=== PATIENT | male | born 1945 | race Caucasian/White ===

== ENCOUNTER 2025-06-19 18:50 | Inpatient (IN) | payer OTHER, SELFPAY ==
[2025-06-19 12:08] VITALS: BP 155/79
[2025-06-19 15:25] VITALS: BMI 30.6
--- NOTE | 2025-06-19 15:33 | ED.GENMED ---
History of Present Illness
<Porfirio Segura PA-C - Last Filed: 06/19/25 16:57>
General
Chief Complaint: Swelling
Source: patient
Exam Limitations: none
Time Seen by Provider: 06/19/25 15:13
History of Present Illness
History of Present Illness:
79-year-old male presents in referral from his family doctor's office for increased swelling to the legs. He notes fatigue denies any significant shortness of breath. He does not note any symptoms of orthopnea. No prior diagnosis of CHF. He
states the swelling is spreading into his pelvic area and surrounding his penis as well. No chest pain. He is on aspirin and Plavix but no other blood thinners. He states he is quite active he lifts weights and rides a bike daily.
Phy Exam
<Porfirio Segura PA-C - Last Filed: 06/19/25 16:57>
Physical Exam
Physical Exam:
General: Well-appearing male no acute respiratory distress
HEENT: Normal cephalic atraumatic
Heart: Regular rate and rhythm
Lungs: Clear no wheeze
Abdomen is soft nontender
Extremities: Pitting edema bilateral lower extremities into the bilateral thighs and pelvic area.
Vascular: 2+ DP pulse bilateral feet
Scores
<Porfirio Segura PA-C - Last Filed: 06/19/25 16:57>
Heart Failure Risk
Heart Failure Risk Score: Not Applicable
Course
<GARRY Schultz Last Filed: 06/19/25 16:57>
Orders/Labs/Results
Orders:
Orders
06/19/25 12:13
Electrocardiogram (*1) Urgent
Reason for Study: Other
Other Reason for Exam: b/l leg swelling
EKG- Treatment ONCE
06/19/25 15:30
CR Chest - 2 Views Urgent
Comment:
Reason For Exam: fatigue
06/19/25 16:04
Complete Blood Count/With Diff Urgent
Comprehensive Metabolic Panel Urgent
NT-proBNP Urgent
06/19/25 16:51
Furosemide [Lasix] 40 mg IV NOW STA
Abnormal Lab Results
06/19/25
16:04
RBC 4.00 L 10^6/uL
(4.70-6.10)
Hgb 12.3 L g/dL
(13.0-18.0)
Hct 38.1 L %
(39.0-52.0)
MCV 95.3 H fL
(80.0-94.0)
MCHC 32.3 L g/dL
(33.0-37.0)
RDW 14.7 H %
(11.5-14.5)
MPV 10.6 H fL
(7.4-10.4)
Absolute Lymphs (auto) 0.9 L 10^3/uL
(1.2-3.4)
Absolute Monos (auto) 0.7 H 10^3/uL
(0.1-0.6)
Lymphocytes % 17.6 L %
(20.5-51.1)
Monocytes % 12.8 H %
(1.7-9.3)
Chloride 111 H mmol/L
(98-107)
BUN 34 H mg/dl
(9-20)
Glucose 118 H mg/dl
(70-99)
Total Bilirubin 1.4 H mg/dl
(0.2-1.3)
06/19/25 16:04
06/19/25 16:04
Vital Signs
Initial and Last Documented VS:
Initial Vital Signs
Temp Pulse Resp BP Pulse Ox
97.5 F 78 16 155/79 98
06/19/25 12:08 06/19/25 12:08 06/19/25 12:08 06/19/25 12:08 06/19/25 12:08
Last Documented Vital Signs
Temp Pulse Resp BP Pulse Ox
97.5 F 81 18 156/77 100
06/19/25 12:08 06/19/25 16:25 06/19/25 16:25 06/19/25 16:25 06/19/25 16:25
<Cr Mathias, - Last Filed: 06/19/25 17:00>
Orders/Labs/Results
Orders:
Orders
06/19/25 12:13
Electrocardiogram (*1) Urgent
Reason for Study: Other
Other Reason for Exam: b/l leg swelling
EKG- Treatment ONCE
06/19/25 15:30
CR Chest - 2 Views Urgent
Comment:
Reason For Exam: fatigue
06/19/25 16:04
Complete Blood Count/With Diff Urgent
Comprehensive Metabolic Panel Urgent
NT-proBNP Urgent
06/19/25 16:51
Furosemide [Lasix] 40 mg IV NOW STA
Abnormal Lab Results
06/19/25
16:04
RBC 4.00 L 10^6/uL
(4.70-6.10)
Hgb 12.3 L g/dL
(13.0-18.0)
Hct 38.1 L %
(39.0-52.0)
MCV 95.3 H fL
(80.0-94.0)
MCHC 32.3 L g/dL
(33.0-37.0)
RDW 14.7 H %
(11.5-14.5)
MPV 10.6 H fL
(7.4-10.4)
Absolute Lymphs (auto) 0.9 L 10^3/uL
(1.2-3.4)
Absolute Monos (auto) 0.7 H 10^3/uL
(0.1-0.6)
Lymphocytes % 17.6 L %
(20.5-51.1)
Monocytes % 12.8 H %
(1.7-9.3)
Chloride 111 H mmol/L
(98-107)
BUN 34 H mg/dl
(9-20)
Glucose 118 H mg/dl
(70-99)
Total Bilirubin 1.4 H mg/dl
(0.2-1.3)
06/19/25 16:04
06/19/25 16:04
Vital Signs
Initial and Last Documented VS:
Initial Vital Signs
Temp Pulse Resp BP Pulse Ox
97.5 F 78 16 155/79 98
06/19/25 12:08 06/19/25 12:08 06/19/25 12:08 06/19/25 12:08 06/19/25 12:08
Last Documented Vital Signs
Temp Pulse Resp BP Pulse Ox
97.5 F 81 18 156/77 100
06/19/25 12:08 06/19/25 16:25 06/19/25 16:25 06/19/25 16:25 06/19/25 16:25
<Porfirio Segura PA-C - Last Filed: 06/19/25 16:57>
MDM/Problems Addressed
Differential Diagnosis Includes:
1 patient presents with leg swelling. Consider CHF versus dependent edema versus liver dysfunction
Check labs including BNP. EKG pending. Chest x-ray ordered
<Porfirio Segura PA-C - Last Filed: 06/19/25 16:57>
*Pulse Oximetry
SaO2: 98
Oxygen Mode of Delivery: Room air
Patient hypoxic: no
*Critical Care Note
Total Time (30-74mins, 75-104mins- exclusive of procedures): Not Applicable
<Porfirio Segura PA-C - Last Filed: 06/19/25 16:57>
Update Note
Update Note:
Workup here consistent with CHF with pulmonary edema cardiomegaly and pleural effusion on the x-ray with BNP greater than 27,000. Lasix IV ordered. Will admit to hospital
ED Attending Note
<Porfirio Segura PA-C - Last Filed: 06/19/25 16:57>
-
Portions of this chart may have been created with voice recognition software.� Occasional wrong word or��sound alike� substitutions may have occurred due to the inherent limitations of voice recognition software.
<Cr Mathias DO - Last Filed: 06/19/25 17:00>
ED Attending Note
Patient seen and examined by attending physician: Yes
I performed the substantive portion of visit, reviewed & personally made and approve the management plan that is documented in note by myself or PRICILLA.: Yes
Discharge Plan
Departure
Patient Disposition: Admit
Date of Disposition: 06/19/25
Time of Disposition: 16:57
Presentation/result/management discussed w/ accepting MD/DO: Hospitalist
Discharge Problem:
Acute CHF
Prescriptions:
No Action
atorvastatin 80 mg tablet
80 mg PO HS
lisinopril 20 mg tablet
20 mg PO BID
clopidogrel 75 mg tablet
75 mg PO DAILY
nitroglycerin 0.4 mg tablet, sublingual
0.4 mg sublingual [id number] PRN (Reason: chest pain)
lorazepam 1 mg tablet
1 mg PO HS
carvedilol phosphate 20 mg capsule, ER multiphase 24 hr
20 mg PO DAILY
Theragen Tablet
1 tab PO DAILY
aspirin 81 mg Tablet,Delayed Release (Dr/Ec)
81 mg PO DAILY
ascorbic acid (vitamin C) [Vitamin C] 500 mg Tablet
500 mg PO DAILY
coenzyme Q10 [Co Q-10] 100 mg Capsule
100 mg PO DAILY
cholecalciferol (vitamin D3) 25 mcg (1,000 unit) Tablet
25 mcg PO DAILY
Visbiome 112.5 billion cell Capsule
1 cap PO DAILY
omeprazole 20 mg Tablet,Delayed Release (Dr/Ec)
20 mg PO DAILY
garlic 200 mg Tablet
200 mg PO DAILY
Glucosamine Chondroitin 550-30-1 mg Capsule
1 cap PO DAILY
Referrals:
Bertrand Mathews CRNP [Family Provider, General]
Interventions
Interventions:
*Risk Screen - Suicide Last Done: 06/19/25 12:08
*Neglect/Abuse Screening Last Done: 06/19/25 12:08
ED- Cardiac Assessment Last Done: 06/19/25 15:25
ED- Pulmonary Assessment Last Done: 06/19/25 15:25
ED-Skin Assessment Last Done: 06/19/25 16:24
Discharge Date and Time
Print Language: KISWAHILI
[2025-06-19 16:17] LABS: Hematocrit 38.1 % (39.0-52.0); Hemoglobin 12.3 g/dL (13.0-18.0); Mean Corp Hgb Conc. 32.3 g/dL (33.0-37.0); Mean Corpuscular Volume 95.3 fL (80.0-94.0); Nucleated Red Blood Cells % 0 % (-); Platelet Count 177 10^3/uL (130-400); Red Cell Dist. Width 14.7 % (11.5-14.5)
[2025-06-19 16:25] VITALS: BP 156/77
[2025-06-19 16:37] LABS: ALT (SGPT) 25 U/L (0-50); AST (SGOT) 28 U/L (17-59); Albumin 3.9 g/dl (3.5-5.0); Alkaline Phosphatase 82 U/L (38-126); Blood Urea Nitrogen 34 mg/dl (9-20); Calcium 9.0 mg/dl (8.4-10.2); Carbon Dioxide 22 mmol/L (22-30); Chloride 111 mmol/L (98-107); Estimated Creatinine Clearance 45 ml/min; Glucose 118 mg/dl (70-99); Potassium 4.9 mmol/L (3.5-5.1); Sodium 139 mmol/L (135-145); Total Protein 7.2 g/dl (6.3-8.2); eGFR > 60.00
--- NOTE | 2025-06-19 17:07 | HPS.HSE ---
Addendum entered and electronically signed by Zaira Duke MD 06/19/25 18:57:
Attending addendum:
I saw and evaluated the patient. I reviewed the [employer]�s note and agree with findings and plan as documented in the [employer]�s note. Came to the ER with progressive lower extremity edema for last 2 months, was seen by his family doctor today advised to come
to the ER.
Patient denies any shortness of breath, no orthopnea, normally active at home, riding his bike and weightlifting, no paroxysmal nocturnal dyspnea.
Patient seen and examined at bedside, denies any chest pain or shortness of breath, no abdominal pain, no nausea, no vomiting, no diarrhea or constipation.
Physical exam:
GENERAL : Patient is awake, alert, oriented x3
HEENT: Nonicteric sclerae, PERRLA, EOMI. Oropharynx clear. Moist mucous membranes. Conjunctivae appear well perfused.
CHEST: Chest wall is nontender.
HEART: Regular rate and rhythm without murmurs.
LUNGS: Clear to auscultation bilaterally.
ABDOMEN: Soft, positive bowel sounds, nontender, no organomegaly.
RECTAL: Deferred.
MUSCLES/EXTREMITIES: Bilateral +2 edema
NEUROLOGIC: Cranial nerves II-XII intact without motor/sensory deficit.
Assessment/plan:
Bilateral lower extremity edema.
Clear lung on physical exam.
but chest x ray shows:
1. SMALL BILATERAL PLEURAL EFFUSIONS (right larger than left).
2. Moderate to severe right lower lobe and mild to moderate left lower lobe subpleural airspace consolidation (probably compressive atelectasis).
3. ELEVATED PULMONARY VENOUS PRESSURES and mild interstitial cardiogenic pulmonary edema.
4. Mild to moderate cardiomegaly.
5. 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
Echocardiogram from 2020 shows EF of 55%.
Elevated BNP 35935
Lasix started in the ER, will continue.
Cardiology consult.
Repeat echocardiogram
Coronary artery disease status post stent in 2017.
No chest pain currently.
Continue home Plavix/aspirin/atorvastatin/carvedilol
History of hypertension.
Continue lisinopril/carvedilol
GERD.
Continue with omeprazole
Anxiety.
Continue lorazepam
CODE STATUS: Full code
DVT prophylaxis: Heparin
Diet: Regular diet
Disposition: Lasix/echo/cardiology consult
Total time spent on today�s encounter was 75 minutes which included time spent in counseling the patient/family regarding diagnosis and treatment plan as listed above, goals of care, and symptom management. Case was discussed with nursing staff,
specialists, and care coordinators/case management. All labs and imaging personally reviewed by me. Remainder the time spent in detailed review of previous records, lab data, imaging, and other medical provider documentation.
Original Note:
Family Physician
-
Family Physician: ROSA Cardoza
Chief Complaint
-
increased bilateral lower extremity edema
History of Present Illness
Patient is a 79-year-old male with past medical history significant for hypertension, hyperlipidemia, paroxysmal atrial fibrillation, congestive heart failure, GERD and CAD who presented to [facility] ED for evaluation of increased swelling in bilateral
lower extremities. Patient reports it has been present for the last several months and he has been seen by [facility] in [place] (Bertrand LEE), earlier this month and again today. Cardiology today requested he go to ED for
evaluation. Patient does admit to some exertional dyspnea. Denies fever, chills, cough, chest pain or palpitations.
Medical History
Past Medical History
Past Medical History: Reports Other
Additional Past Medical History:
hypertension
hyperlipidemia
paroxysmal atrial fibrillation
congestive heart failure
GERD
CAD
abdominal aortic aneurysm
right bundle branch block
Past Surgical History: Reports Other
Additional Past Surgical History:
cardiac cath with stent
Social History
Tobacco: Non-smoker
Alcohol: Occasional
Drug: None
Personal:
Living: With Family
Employment: Retired
Family History
Family History: Not pertinent
Allergies / Home Medications
Allergies reflects when Allergies were last updated in [facility].
Home Medications with original date entered in [facility]
Allergy/Medication List:
Allergies
Allergy/AdvReac Type Severity Reaction Status Date / Time
Penicillins Allergy Rash Verified 06/19/25 12:12
Home Medications
Lactobac no.2-Bifidobac no.1-S. thermo 112.5 billion cell capsule (Visbiome) 1 cap PO DAILY 06/19/25
ascorbic acid (vitamin C) 500 mg tablet (Vitamin C) 500 mg PO DAILY 06/19/25
aspirin 81 mg tablet,delayed release 81 mg PO DAILY 06/19/25
atorvastatin 80 mg tablet 80 mg PO HS 06/19/25
carvedilol phosphate 20 mg capsule,[id number] multiphase 20 mg PO DAILY 06/19/25
cholecalciferol (vitamin D3) 25 mcg (1,000 unit) tablet 25 mcg PO DAILY 06/19/25
clopidogrel 75 mg tablet 75 mg PO DAILY 06/19/25
coenzyme Q10 100 mg capsule (Co Q-10) 100 mg PO DAILY 06/19/25
garlic 200 mg tablet 200 mg PO DAILY 06/19/25
glucosamine sulf dipot chlr,msm,chond 550 mg-C 30 mg-george 1 mg capsule (Glucosamine Chondroitin) 1 cap PO DAILY 06/19/25
lisinopril 20 mg tablet 20 mg PO BID 06/19/25
lorazepam 1 mg tablet 1 mg PO HS 06/19/25
nitroglycerin 0.4 mg sublingual tablet 0.4 mg sublingual [id number] PRN chest pain 06/19/25
omeprazole 20 mg tablet,delayed release 20 mg PO DAILY 06/19/25
therapeutic multivitamin 1 tab PO DAILY 06/19/25
Review of Systems
-
History Source: Patient
Constitutional: Reports Weight Gain; Denies Fever or Chills
EENT: Denies Sore Throat
Respiratory: Reports Trouble Breathing (exertional dyspnea ); Denies Cough
Cardiac: Reports Other (BLLE edema ); Denies Chest Pain, Diaphoresis, Palpitations or Syncope
Abdomen/GI: Denies Abdominal Pain, Nausea, Vomiting or Diarrhea
: Denies Dysuria, Frequency or Urgency
Skin: Denies Rash
Neurological: Denies Dizzy, Headache, Weakness or Numbness
Hematologic/Lymphatic: Denies Bleeding
Physical Exam
Vital Signs
Vital Signs
Temp Pulse Resp BP Pulse Ox
97.5 F 81 18 156/77 100
06/19/25 12:08 06/19/25 16:25 06/19/25 16:25 06/19/25 16:25 06/19/25 16:25
Physical Exam
General: Well Developed, Well Nourished, No Apparent Distress, Comfortable, Conversant and Obese
HEENT: NormoCephalic, Moist mucous membranes, PERRLA, Nose Appears Normal and Ears Appear Normal
Respiratory: Clear and Non Labored Respirations
Cardiac: S1/S2 and Regular Rhythm; No Murmur
GI: Soft, Non Tender, Non Distended and Normal Bowel Sounds
Musculoskeletal: No Clubbing, No Cyanosis and No Edema
Skin: Warm and IV/Catheter Site
Neuro: Awake and AO x 3
Psych: Calm and Intact Judgment/Insight
Laboratory Results
-
06/19/25 16:04
06/19/25 16:04
Laboratory Results
Total Bilirubin 1.4 mg/dl (0.2-1.3) H 06/19/25 16:04
AST 28 U/L (17-59) 06/19/25 16:04
ALT 25 U/L (0-50) 06/19/25 16:04
Alkaline Phosphatase 82 U/L (38-126) 06/19/25 16:04
Data Reviewed
-
Medical Tests (Nuc Med, Echo, EKG etc): Report Reviewed by me (EKG: NORMAL SINUS RHYTHM RIGHT BUNDLE BRANCH BLOCK INFERIOR INFARCT , AGE UNDETERMINED T WAVE ABNORMALITY, CONSIDER LATERAL ISCHEMIA)
Lab Data: Labs Reviewed by me (pBNP >[id number])
Impression/Plan
-
IMPRESSION/PLAN:
#bilateral lower extremity edema 2/2 CHF vs. dependent edema
#congestive heart failure
pBNP >78875
EKG: NORMAL SINUS RHYTHM
RIGHT BUNDLE BRANCH BLOCK
INFERIOR INFARCT , AGE UNDETERMINED
T WAVE ABNORMALITY, CONSIDER LATERAL ISCHEMIA
CXR:
- Admit to telemetry
- Consult Cardiology
- IV Lasix 40mg daily
- ECHO
- daily weights
- I & Os
#hypertension
- continue lisinopril
#hyperlipidemia
- continue atorvastatin
#paroxysmal atrial fibrillation
- continue carvedilol
#CAD
s/p stent
- continue aspirin and Plavix
- continue PRN nitro
Code status: full code
DVT Prophylaxis: heparin sq
[2025-06-19] MEDS: LASIX 40 MG IV (17:09)
[2025-06-19 19:30] VITALS: BP 112/74; BMI 29.6
--- NOTE | 2025-06-19 19:45 | PTCARENOTE ---
Patient received from ED via stretcher. Patient walked into room. No complaints of pain or SOB. Vitals stable, call stevenson within reach, and oriented to room.
[2025-06-19] MEDS: ZESTRIL 20 MG PO (20:40)
[2025-06-19] MEDS: ATIVAN 1 MG PO (21:36)
[2025-06-19] MEDS: LIPITOR 80 MG PO (21:36)
[2025-06-19 23:07] VITALS: BP 130/64
[2025-06-20] MEDS: HEPARIN 5000 UNITS SC ×4 (00:37→23:16)
[2025-06-20 04:10] VITALS: BP 116/55
[2025-06-20 05:56] VITALS: BMI 29.6
[2025-06-20 07:25] VITALS: BP 138/76
[2025-06-20] MEDS: COREG 6.25 MG PO ×2 (07:54→19:55)
[2025-06-20] MEDS: ZESTRIL 20 MG PO ×2 (07:56→19:55)
[2025-06-20] MEDS: PLAVIX 75 MG PO (07:56)
[2025-06-20] MEDS: ASPIR LOW (ENTERIC COATED) 81 MG PO (07:56)
[2025-06-20] MEDS: LASIX 40 MG IV (07:56)
[2025-06-20] MEDS: PROTONIX 40 MG PO (07:56)
[2025-06-20 08:33] LABS: Hematocrit 33.0 % (39.0-52.0); Hemoglobin 10.7 g/dL (13.0-18.0); Mean Corp Hgb Conc. 32.4 g/dL (33.0-37.0); Mean Corpuscular Volume 94.8 fL (80.0-94.0); Platelet Count 152 10^3/uL (130-400); Red Cell Dist. Width 14.8 % (11.5-14.5)
[2025-06-20 09:00] LABS: Blood Urea Nitrogen 35 mg/dl (9-20); Calcium 8.6 mg/dl (8.4-10.2); Carbon Dioxide 25 mmol/L (22-30); Chloride 112 mmol/L (98-107); Estimated Creatinine Clearance 38 ml/min; Glucose 83 mg/dl (70-99); HDL Cholesterol 34 mg/dl; LDL Cholesterol, Calculated 21 mg/dl; Potassium 4.3 mmol/L (3.5-5.1); Sodium 142 mmol/L (135-145); Very Low Density Lipoprotein 13 mg/dl (0-30); eGFR 50.81
[2025-06-20 09:27] LABS: Troponin I 0.153 ng/ml
--- NOTE | 2025-06-20 11:01 | CON.CAR ---
Addendum entered and electronically signed by Ryland Maya MD 06/20/25 15:08:
I saw and examined the patient.
The THEOLOGY PROFESSOR or PA's note was reviewed and I agree with the note.
Comment: General: Well developed, well nourished in NAD.
Neck: Supple, no JVD, HJR, carotids +2 B/L, no bruits bilaterally.
Heart: Non displaced PMI, RRR, no murmurs, No S3, S4, no rubs.
Lungs: Scattered rhonchi
Extremities: No clubbing, cyanosis or edema bilaterally.
Neuro: Grossly nonfocal, awake, alert and oriented x3.
Martell has history of hypertension, hyperlipidemia, A-fib, CHF, GERD, CAD, cardiomyopathy ejection fraction of 25 to 30% in May 2025. He presents with worsening shortness of breath and lower extremity edema and acute systolic CHF. He is seen by
cardiology pain at [place] and wanted to come to the [place] system. Will continue Coreg and lisinopril. Will consider adding Aldactone and/or Jardiance/Aldactone depending on course.
Original Note:
Consultation
Consultation Request
Date/Time Consultation Requested: 06/19/2025, 2004
Date/Time Consultation Performed: 06/20/2025, 1100
Requesting Provider: ROSA Corrales
Performing Provider: ROSA Zhao for Dr. Maya
Reason for Consultation: Increasing lower extremity edema
Medical History
-
Chief Complaint: Lower extremity edema
History of Present Illness:
79-year-old male with past medical history of hypertension, hyperlipidemia, paroxysmal A-fib, heart failure, GERD, CAD who presents to [facility] ED 06/19/2025 for increased lower extremity edema of several months duration. He was seen at [facility]
primary care in [place] on 06/19/2025 and advised to go to ED. He reports a history of stent [facility] at [facility] and has been on aspirin and Plavix since then. He has been told that he has heart failure in the past but he does not know
EF. He is followed by Dr. Raj Rodriguez at [facility], I have requested records. Reviewed patient's outpatient med list. From cardiovascular standpoint he is on Coreg CR 20 mg daily, lisinopril 20 mg twice daily, aspirin, Plavix. He is
not on a diuretic in the outpatient setting. Paroxysmal A-fib is listed as a diagnosis but he is not aware of an arrhythmia history and is not on oral anticoagulation.
He denies shortness of breath, chest pain, palpitations, lightheadedness, syncope, PND, orthopnea
ER evaluation: proBNP greater than 27,000
Troponin 0.153
BUN/creatinine 34/1.2, NA 139, K4.9
Chest x-ray: Small bilateral pleural effusions right greater than left elevated pulmonary venous pressures and mild interstitial cardio genic pulmonary edema
EKG: Normal sinus rhythm, first-degree AV block, right bundle branch block
Past medical history:
Hypertension
Hyperlipidemia
CAD status post stent x 2 in 2018 at [facility], on aspirin and Plavix
Paroxysmal A-fib
Heart failure
Right bundle branch block
Abdominal aortic aneurysm
GERD
Past Medical History
Past Medical History: Other (As above)
Past Surgical History: Other
Social History
Tobacco: Non-Smoker
Alcohol: Occasional
Family History
Family History: Reviewed & Not Pertinent
Allergies / Home Medications
Allergy/AdvReac Type Severity Reaction Status Date / Time
Penicillins Allergy Rash Verified 06/19/25 12:12
�Medication �Instructions �Recorded �Confirmed �Type
Lactobac no.2-Bifidobac no.1-S. 1 cap PO DAILY Supplement 06/19/25 06/19/25 History
thermo 112.5 billion cell capsule
(Visbiome)
ascorbic acid (vitamin C) 500 mg 500 mg PO DAILY Supplement 06/19/25 06/19/25 History
tablet (Vitamin C)
aspirin 81 mg tablet,delayed 81 mg PO DAILY Blood Clot 06/19/25 06/19/25 History
release Prevention/Tx
atorvastatin 80 mg tablet 80 mg PO HS High Cholesterol 06/19/25 06/19/25 History
carvedilol phosphate 20 mg 20 mg PO DAILY Blood Pressure 06/19/25 06/19/25 History
capsule,[id number] multiphase
cholecalciferol (vitamin D3) 25 25 mcg PO DAILY Supplement 06/19/25 06/19/25 History
mcg (1,000 unit) tablet
clopidogrel 75 mg tablet 75 mg PO DAILY Blood Clot 06/19/25 06/19/25 History
Prevention/Tx
coenzyme Q10 100 mg capsule (Co 100 mg PO DAILY Supplement 06/19/25 06/19/25 History
Q-10)
garlic 200 mg tablet 200 mg PO DAILY Supplement 06/19/25 06/19/25 History
glucosamine sulf dipot 1 cap PO DAILY Supplement 06/19/25 06/19/25 History
chlr,msm,chond 550 mg-C 30 mg-george
1 mg capsule (Glucosamine
Chondroitin)
lisinopril 20 mg tablet 20 mg PO BID Blood Pressure 06/19/25 06/19/25 History
lorazepam 1 mg tablet 1 mg PO HS Mental Health/Anxiety 06/19/25 06/19/25 History
nitroglycerin 0.4 mg sublingual 0.4 mg sublingual [id number] PRN 06/19/25 06/19/25 History
tablet chest pain
omeprazole 20 mg tablet,delayed 20 mg PO DAILY GERD 06/19/25 06/19/25 History
release
therapeutic multivitamin 1 tab PO DAILY Supplement 06/19/25 06/19/25 History
Review of Systems
-
History Source: Patient
All other systems: Negative unless noted
Physical Exam
Vital Signs
Temp Pulse Resp BP Pulse Ox
97.5 F 76 16 138/76 97
06/20/25 07:25 06/20/25 07:25 06/20/25 07:25 06/20/25 07:25 06/20/25 07:55
Lab Results
06/20/25 07:01
06/20/25 07:01
Troponin I 0.153 ng/ml H* 06/20/25 08:47
Bgu-I-Lqfcncaiyxl Pept > 77623 pg/ml 06/19/25 16:04
GEN: No distress, awake, Ox3
HEENT: supple, anicteric, mmm
LUNGS: CTA, no wheezes/rales
CV: Reg, S1/S2, no murmur
ABD: soft, BS+, NT/ND
EXT: 1+ pitting bilateral lower extremity edema to knees
NEURO: Gross non-focal
SKIN: No rash
Impression / Plan
-
PCP:ROSA Jiménez
Primary auto rebuilder:Raj Rodriguez
Impression:
Acute on chronic heart failure reduced EF
Lower extremity edema
CAD
Hypertension
Hyperlipidemia
Paroxysmal A-fib
right bundle branch block
Cardiovascular testing:
Echo 2020: EF 55%
Echo 06/16/2025: EF 25 to 30%, mildly dilated LV, mild cLVH, biatrial enlargement, moderate AI, mild to moderate MR, mild TR
Plan:
79-year-old male with h/o CAD s/p stent x 2 2017, HTN, hyperlipidemia, paroxysmal A-fib, heart failure, GERD, who presents to [facility] ED 06/19/2025 for increased lower extremity edema of several months duration. He was seen at [facility] primary
care in [place] on 06/19/2025 and advised to go to ED. proBNP greater than 27,000, chest x-ray with mild pulmonary edema and bilateral pleural effusions, echo today 05/2024: EF 25 to 30%. He is followed by Dr. Raj Rodriguez at [facility],
but has not been seen in about a year. I have requested records. on Coreg CR 20 mg daily, lisinopril 20 mg twice daily, aspirin, Plavix. He is not on a diuretic in the outpatient setting. Paroxysmal A-fib is listed as a diagnosis but he is not
aware of an arrhythmia history and is not on oral anticoagulation.
acute Heart failure reduced EF
-IV Lasix
-cont outpt coreg, lisinopril
-consider adding MRA and SGLT2-I
-awaiting records from outpt cardiogist
-I/O, daily wt
-monitor renal fxn
h/o CAD
-on DAPT since stenting in 2018
-denies CP/anginal symptoms
-cont atorvastatin, goal LDL <55
-cont Coreg, HTN control
HTN
-cont Lisinopril and Coreg
h/o pafib
-not on OAC
-pt denies h/o arrhythmia
-monitor on telem
-await records from primary cards�I called and requested
-Telemetry personally reviewed: Normal sinus rhythm 62 to 78 bpm
Data Reviewed
-
EKG: Tracing Personally Visualized and interpreted
Medical Tests (Nuc Med, Echo etc): Image Personally Visualized and interpreted
Labs: Labs Reviewed by me
Old Records: Requested
[2025-06-20 11:10] VITALS: BP 136/63
--- NOTE | 2025-06-20 13:07 | W.PN.HOSP.TC ---
Today's Communication/Plan
-
Monitor vital signs see plan
Continue IV diuresis
Echo
Cardiology to see
Check venous ultrasound
Trend Trop
Assessment / Plan
Assessment / Plan
General: Well Developed, Well Nourished, No Apparent Distress, Comfortable, Conversant and Obese
HEENT: NormoCephalic, Moist mucous membranes, PERRLA, Nose Appears Normal and Ears Appear Normal
Respiratory: Clear and Non Labored Respirations
Cardiac: S1/S2 and Regular Rhythm; No Murmur
GI: Soft, Non Tender, Non Distended and Normal Bowel Sounds
Musculoskeletal: 2+ pitting edema
Neuro: Awake and AO x 3
Psych: Calm and Intact Judgment/Insight
bilateral lower extremity edema likely 2/2 acute CHF
pBNP >14880
Chest x-ray with small bilateral pleural effusion, possible atelectasis. Interstitial cardiogenic pulmonary edema.
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
Echo 06/20 with EF 25 to 30%, global hypokinesis. Grade 2 diastolic dysfunction. Will likely need to see his previous echocardiogram
Cardiology consulted
Continue with IV diuresis
- daily weights
- I & Os
Check lower extremity Doppler
Elevated troponin, likely nonischemic myocardial injury
Denies chest pain
hx of CAD
s/p stent
- continue aspirin and Plavix
- continue PRN nitro
hypertension
- continue lisinopril
hyperlipidemia
- continue atorvastatin
paroxysmal atrial fibrillation
- continue carvedilol
not sure why not on AC
Code status: full code
DVT Prophylaxis: heparin sq
I spent a total of 52 minutes with the patient or on the floor. More than 50% of this time involved counseling and coordination of care.
Anticipated Discharge: > 48 hours
Subjective/Interval History
-
Date of Service: June 20, 2025
Feels swelling is better
Objective Data
-
Labs:
Laboratory Results
06/20/25
07:01
WBC 4.2 L
Hgb 10.7 L
Hct 33.0 L
Plt Count 152
Sodium 142
Potassium 4.3
Chloride 112 H
Carbon Dioxide 25
BUN 35 H
Creatinine 1.4 H
Glucose 83
Calcium 8.6
Vital Signs:
Vital Signs
Temp Pulse Resp BP Pulse Ox
97.7 F 79 18 136/63 96
06/20/25 11:10 06/20/25 11:10 06/20/25 11:10 06/20/25 11:10 06/20/25 11:10
I&O
06/19/25 06/20/25 06/21/25
06:59 06:59 06:59
Intake Total 120 / 120
Output Total 1275 / 1275
Balance -1155 / -1155
[2025-06-20 15:12] VITALS: BP 140/68
--- NOTE | 2025-06-20 16:22 | CM ---
Patient lives with his spouse in a two story home, 2 steps to enter, patient is independent with adl's and ambulation, no dme, plan is to home with spouse when stable.
PCP: Bertrand Mathews
Pharmacy: [facility]
[2025-06-20 19:10] VITALS: BP 137/76
[2025-06-20] MEDS: ATIVAN 1 MG PO (21:06)
[2025-06-20] MEDS: LIPITOR 80 MG PO (21:06)
[2025-06-20 23:04] LABS: Troponin I 0.122 ng/ml
[2025-06-20 23:10] VITALS: BP 108/46
[2025-06-21 03:00] VITALS: BP 144/76
[2025-06-21 03:02] LABS: Hematocrit 35.0 % (39.0-52.0); Hemoglobin 11.5 g/dL (13.0-18.0); Mean Corp Hgb Conc. 32.9 g/dL (33.0-37.0); Mean Corpuscular Volume 93.3 fL (80.0-94.0); Platelet Count 166 10^3/uL (130-400); Red Cell Dist. Width 15.0 % (11.5-14.5)
[2025-06-21 03:28] LABS: Blood Urea Nitrogen 38 mg/dl (9-20); Calcium 8.9 mg/dl (8.4-10.2); Carbon Dioxide 26 mmol/L (22-30); Chloride 109 mmol/L (98-107); Estimated Creatinine Clearance 34 ml/min; Glucose 98 mg/dl (70-99); Potassium 4.0 mmol/L (3.5-5.1); Sodium 143 mmol/L (135-145); eGFR 43.29
[2025-06-21 03:41] LABS: Troponin I 0.129 ng/ml
[2025-06-21 06:00] VITALS: BMI 28.4
[2025-06-21 07:45] VITALS: BP 123/61
[2025-06-21] MEDS: HEPARIN 5000 UNITS SC ×3 (08:15→23:00)
[2025-06-21] MEDS: ZESTRIL 20 MG PO (08:15)
[2025-06-21] MEDS: PROTONIX 40 MG PO (08:15)
[2025-06-21] MEDS: ASPIR LOW (ENTERIC COATED) 81 MG PO (08:15)
[2025-06-21] MEDS: COREG 6.25 MG PO ×2 (08:15→19:57)
[2025-06-21] MEDS: LASIX 40 MG IV (08:15)
[2025-06-21] MEDS: PLAVIX 75 MG PO (08:15)
[2025-06-21 11:12] VITALS: BP 124/59
--- NOTE | 2025-06-21 11:16 | W.PN.CARDCBS ---
Today's Communication / Plan
-
Hold IV Lasix with overdiuresis and creatinine of 1.6
Lisinopril on hold
Eventually resume lisinopril and consider Entresto and/or Aldactone and/or Farxiga/Jardiance
Impression / Plan
-
PCP:ROSA Jiménez
Primary risk officer:Raj Rodriguez
Impression:
Acute on chronic heart failure reduced EF
Lower extremity edema
CAD
Hypertension
Hyperlipidemia
Paroxysmal A-fib
right bundle branch block
Cardiovascular testing:
Echo 2020: EF 55%
Echo 06/16/2025: EF 25 to 30%, mildly dilated LV, mild cLVH, biatrial enlargement, moderate AI, mild to moderate MR, mild TR
Plan:
Weight is down 6 pounds overnight but creatinine has worsened to 1.6
Will hold IV Lasix
Lisinopril is on hold
Consider eventual Entresto and/or Aldactone and Farxiga/Jardiance
Ejection fraction is newly reduced
Might consider outpatient ischemic evaluation
on DAPT since stenting in 2018
not on OAC with chart history of PAF
Discussed with patient and at bedside
PREADMIT DATA
79-year-old male with h/o CAD s/p stent x 2 2017, HTN, hyperlipidemia, paroxysmal A-fib, heart failure, GERD, who presents to [facility] ED 06/19/2025 for increased lower extremity edema of several months duration. He was seen at [facility] primary
care in [place] on 06/19/2025 and advised to go to ED. proBNP greater than 27,000, chest x-ray with mild pulmonary edema and bilateral pleural effusions, echo today 05/2024: EF 25 to 30%. He is followed by Dr. Raj Rodriguez at [facility],
but has not been seen in about a year. I have requested records. on Coreg CR 20 mg daily, lisinopril 20 mg twice daily, aspirin, Plavix. He is not on a diuretic in the outpatient setting. Paroxysmal A-fib is listed as a diagnosis but he is not
aware of an arrhythmia history and is not on oral anticoagulation.
Progress Note - Stamp Pad Finisher
Subjective
Date of Service: June 21, 2025
He feels better
Objective
Labs:
06/21/25 02:56
06/21/25 02:56
Labs
Hgb 11.5 g/dL (13.0-18.0) L 06/21/25 02:56
Hct 35.0 % (39.0-52.0) L 06/21/25 02:56
Plt Count 166 10^3/uL (130-400) 06/21/25 02:56
Sodium 143 mmol/L (135-145) 06/21/25 02:56
Potassium 4.0 mmol/L (3.5-5.1) 06/21/25 02:56
BUN 38 mg/dl (9-20) H 06/21/25 02:56
Creatinine 1.6 mg/dL (0.7-1.3) H 06/21/25 02:56
Glucose 98 mg/dl (70-99) 06/21/25 02:56
Troponins
06/20/25 06/20/25 06/20/25
08:47 17:14 22:32
Troponin I 0.153 H* Cancelled 0.122 H*
06/21/25
02:56
Troponin I 0.129 H*
Vital Signs and I&O:
Vital Signs
Temp Pulse Resp BP Pulse Ox
97.5 F 74 18 124/59 97
06/21/25 11:12 06/21/25 11:12 06/21/25 11:12 06/21/25 11:12 06/21/25 11:12
Vital Signs
Temp Pulse Resp BP Pulse Ox
97.5 F 74 18 124/59 97
06/21/25 11:12 06/21/25 11:12 06/21/25 11:12 06/21/25 11:12 06/21/25 11:12
Intake & Output
06/19/25 06/20/25 06/21/25 06/22/25
06:59 06:59 06:59 06:59
Intake Total 120 / 120 1020 / 1020
Output Total 1275 / 1275 2220 / 2220 600 / 600
Balance -1155 / -1155 -1200 / -1200 -600 / -600
Physical Exam
Physical Exam
General: Well developed, well nourished in NAD.
Neck: Supple, no JVD, HJR, carotids +2 B/L, no bruits bilaterally.
Heart: Non displaced PMI, RRR, no murmurs, No S3, S4, no rubs.
Lungs: Scattered rhonchi
Extremities: No edema bilaterally.
Neuro: Grossly nonfocal, awake, alert and oriented x3.
[2025-06-21 11:56] LABS: Troponin I 0.077 ng/ml
--- NOTE | 2025-06-21 12:42 | W.PN.HOSP.TC ---
Today's Communication/Plan
-
Monitor vital signs and see plan
Hold diuresis given worsening renal function
Monitor renal function
Check UA
Hold lisinopril
Assessment / Plan
Assessment / Plan
General: Well Developed, Well Nourished, No Apparent Distress, Comfortable, Conversant and Obese
HEENT: NormoCephalic, Moist mucous membranes, PERRLA, Nose Appears Normal and Ears Appear Normal
Respiratory: Clear and Non Labored Respirations
Cardiac: S1/S2 and Regular Rhythm; No Murmur
GI: Soft, Non Tender, Non Distended and Normal Bowel Sounds
Musculoskeletal: 2+ pitting edema
Neuro: Awake and AO x 3
Psych: Calm and Intact Judgment/Insight
bilateral lower extremity edema likely 2/2 acute CHF
pBNP >03915
Chest x-ray with small bilateral pleural effusion, possible atelectasis. Interstitial cardiogenic pulmonary edema.
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
Echo 06/20 with EF 25 to 30%, global hypokinesis. Grade 2 diastolic dysfunction. Will likely need to see his previous echocardiogram
Cardiology following
Hold IV diuresis due to JALEN
- daily weights
- I & Os
Check lower extremity Doppler
JALEN likely secondary to overdiuresis
Continue to monitor
Check UA
Elevated troponin, likely nonischemic myocardial injury
Denies chest pain
hx of CAD
s/p stent
- continue aspirin and Plavix
- continue PRN nitro
hypertension
- Hold lisinopril secondary to JALEN
hyperlipidemia
- continue atorvastatin
paroxysmal atrial fibrillation
- continue carvedilol
not sure why not on AC
Code status: full code
DVT Prophylaxis: heparin sq
I spent a total of 52 minutes with the patient or on the floor. More than 50% of this time involved counseling and coordination of care.
Anticipated Discharge: 24 - 48 hours
Subjective/Interval History
-
Date of Service: June 21, 2025
Denies pain
Objective Data
-
Labs:
Laboratory Results
06/21/25
02:56
WBC 5.4
Hgb 11.5 L
Hct 35.0 L
Plt Count 166
Sodium 143
Potassium 4.0
Chloride 109 H
Carbon Dioxide 26
BUN 38 H
Creatinine 1.6 H
Glucose 98
Calcium 8.9
Vital Signs:
Vital Signs
Temp Pulse Resp BP Pulse Ox
97.5 F 74 18 124/59 97
06/21/25 11:12 06/21/25 11:12 06/21/25 11:12 06/21/25 11:12 06/21/25 11:12
I&O
06/20/25 06/21/25 06/22/25
06:59 06:59 06:59
Intake Total 120 / 120 1020 / 1020
Output Total 1275 / 1275 2220 / 2220 800 / 800
Balance -1155 / -1155 -1200 / -1200 -800 / -800
[2025-06-21 12:53] LABS: Urine Character Clear (Clear)
[2025-06-21 15:34] VITALS: BP 121/69
[2025-06-21 19:19] VITALS: BP 124/63
[2025-06-21] MEDS: LIPITOR 80 MG PO (23:00)
[2025-06-21] MEDS: ATIVAN 1 MG PO (23:00)
[2025-06-21 23:07] VITALS: BP 131/71
[2025-06-22 03:17] VITALS: BP 113/49
[2025-06-22 06:00] VITALS: BMI 27.8
[2025-06-22 07:05] VITALS: BP 160/68
[2025-06-22] MEDS: PROTONIX 40 MG PO (07:14)
[2025-06-22] MEDS: ASPIR LOW (ENTERIC COATED) 81 MG PO (07:14)
[2025-06-22] MEDS: PLAVIX 75 MG PO (07:15)
[2025-06-22] MEDS: COREG 6.25 MG PO ×2 (07:15→19:53)
[2025-06-22] MEDS: HEPARIN 5000 UNITS SC (07:15)
[2025-06-22 07:56] LABS: Hematocrit 33.8 % (39.0-52.0); Hemoglobin 11.3 g/dL (13.0-18.0); Mean Corp Hgb Conc. 33.4 g/dL (33.0-37.0); Mean Corpuscular Volume 92.6 fL (80.0-94.0); Platelet Count 176 10^3/uL (130-400); Red Cell Dist. Width 14.8 % (11.5-14.5)
[2025-06-22 08:12] LABS: Blood Urea Nitrogen 36 mg/dl (9-20); Calcium 8.7 mg/dl (8.4-10.2); Carbon Dioxide 27 mmol/L (22-30); Chloride 107 mmol/L (98-107); Estimated Creatinine Clearance 34 ml/min; Glucose 87 mg/dl (70-99); Potassium 3.8 mmol/L (3.5-5.1); Sodium 139 mmol/L (135-145); eGFR 50.81
[2025-06-22 11:24] VITALS: BP 119/56
--- NOTE | 2025-06-22 11:36 | W.PN.CARDCBS ---
Today's Communication / Plan
-
Renal function has improved
Diuretics remain on hold
Consider restart diuretics on 06/23
Will need to restart lisinopril when renal function has improved
May consider eventual Entresto and/or Aldactone
Case management consult to assess cost of Jardiance/Farxiga in a.m.
Impression / Plan
-
PCP:ROSA Jiménez
Primary image processing engineer:Raj Rodriguez
Impression:
Acute on chronic heart failure reduced EF
Lower extremity edema
CAD
Hypertension
Hyperlipidemia
Paroxysmal A-fib
right bundle branch block
Cardiovascular testing:
Echo 2020: EF 55%
Echo 06/16/2025: EF 25 to 30%, mildly dilated LV, mild cLVH, biatrial enlargement, moderate AI, mild to moderate MR, mild TR
Plan:
Weight continues to decrease although diuretics have been held due to worsening renal insufficiency
Creatinine has improved to 1.4
Consider restart diuretics on 06/23
Lisinopril remains on hold
Consider eventual Entresto and/or Aldactone and Farxiga/Jardiance when renal function has improved
Ejection fraction is newly reduced
Might consider outpatient ischemic evaluation
on DAPT since stenting in 2018
not on OAC with chart history of PAF
He has follow-up cardiology visit in [place] in late June 2025. Perhaps that could be moved up at time of discharge
PREADMIT DATA
79-year-old male with h/o CAD s/p stent x 2 2017, HTN, hyperlipidemia, paroxysmal A-fib, heart failure, GERD, who presents to [facility] ED 06/19/2025 for increased lower extremity edema of several months duration. He was seen at [facility] primary
care in [place] on 06/19/2025 and advised to go to ED. proBNP greater than 27,000, chest x-ray with mild pulmonary edema and bilateral pleural effusions, echo today 05/2024: EF 25 to 30%. He is followed by Dr. Raj Rodriguez at [facility],
but has not been seen in about a year. I have requested records. on Coreg CR 20 mg daily, lisinopril 20 mg twice daily, aspirin, Plavix. He is not on a diuretic in the outpatient setting. Paroxysmal A-fib is listed as a diagnosis but he is not
aware of an arrhythmia history and is not on oral anticoagulation.
Progress Note - Audiology Director
Subjective
Date of Service: June 22, 2025
No complaints
Objective
Labs:
06/22/25 06:46
06/22/25 06:46
Labs
Hgb 11.3 g/dL (13.0-18.0) L 06/22/25 06:46
Hct 33.8 % (39.0-52.0) L 06/22/25 06:46
Plt Count 176 10^3/uL (130-400) 06/22/25 06:46
Sodium 139 mmol/L (135-145) 06/22/25 06:46
Potassium 3.8 mmol/L (3.5-5.1) 06/22/25 06:46
BUN 36 mg/dl (9-20) H 06/22/25 06:46
Creatinine 1.4 mg/dL (0.7-1.3) H 06/22/25 06:46
Glucose 87 mg/dl (70-99) 06/22/25 06:46
Troponins
06/20/25 06/20/25 06/20/25
08:47 17:14 22:32
Troponin I 0.153 H* Cancelled 0.122 H*
06/21/25 06/21/25
02:56 11:00
Troponin I 0.129 H* 0.077 H*
Vital Signs and I&O:
Vital Signs
Temp Pulse Resp BP Pulse Ox
97.6 F 72 18 119/56 96
06/22/25 11:24 06/22/25 11:24 06/22/25 11:24 06/22/25 11:24 06/22/25 11:24
Vital Signs
Temp Pulse Resp BP Pulse Ox
97.6 F 72 18 119/56 96
06/22/25 11:24 06/22/25 11:24 06/22/25 11:24 06/22/25 11:24 06/22/25 11:24
Intake & Output
06/20/25 06/21/25 06/22/25 06/23/25
06:59 06:59 06:59 06:59
Intake Total 120 / 120 1020 / 1020 300 / 300
Output Total 1275 / 1275 2220 / 2220 1350 / 1350 570 / 570
Balance -1155 / -1155 -1200 / -1200 -1050 / -1050 -570 / -570
Physical Exam
Physical Exam
General: Well developed, well nourished in NAD.
Neck: Supple, no JVD, HJR, carotids +2 B/L, no bruits bilaterally.
Heart: Non displaced PMI, RRR, no murmurs, No S3, S4, no rubs.
Lungs: Clear to auscultation bilaterally, no wheeze, rhonchi, rubs bilaterally,
normal expiratory phase.
Extremities: No clubbing, cyanosis or edema bilaterally.
Neuro: Grossly nonfocal, awake, alert and oriented x3.
--- NOTE | 2025-06-22 12:02 | W.PN.HOSP.TC ---
Today's Communication/Plan
-
Monitor vital signs and see plan
Discussed with cardiology, will hold diuresis for another day and will monitor creatinine
Monitor renal function
Hold lisinopril for now
Assessment / Plan
Assessment / Plan
General: Well Developed, Well Nourished, No Apparent Distress, Comfortable, Conversant and Obese
HEENT: NormoCephalic, Moist mucous membranes, PERRLA, Nose Appears Normal and Ears Appear Normal
Respiratory: Clear and Non Labored Respirations
Cardiac: S1/S2 and Regular Rhythm; No Murmur
GI: Soft, Non Tender, Non Distended and Normal Bowel Sounds
Musculoskeletal: 2+ pitting edema
Neuro: Awake and AO x 3
Psych: Calm and Intact Judgment/Insight
bilateral lower extremity edema likely 2/2 acute CHFrEF
pBNP >97840
Chest x-ray with small bilateral pleural effusion, possible atelectasis. Interstitial cardiogenic pulmonary edema.
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
Echo 06/20 with EF 25 to 30%, global hypokinesis. Grade 2 diastolic dysfunction.
Cardiology following
Hold IV diuresis due to JALEN. Creatinine slowly improving
- daily weights
- I & Os
Lower extremity Doppler negative for DVT
JALEN likely secondary to overdiuresis
Continue to monitor
Elevated troponin, likely nonischemic myocardial injury
Denies chest pain
hx of CAD
s/p stent
- continue aspirin and Plavix
- continue PRN nitro
hypertension
- Hold lisinopril secondary to JALEN
hyperlipidemia
- continue atorvastatin
paroxysmal atrial fibrillation
- continue carvedilol
not sure why not on AC
Code status: full code
DVT Prophylaxis: heparin sq
Anticipated Discharge: 24 - 48 hours
Subjective/Interval History
-
Date of Service: June 22, 2025
Denies pain
Objective Data
-
Labs:
Laboratory Results
06/22/25
06:46
WBC 5.1
Hgb 11.3 L
Hct 33.8 L
Plt Count 176
Sodium 139
Potassium 3.8
Chloride 107
Carbon Dioxide 27
BUN 36 H
Creatinine 1.4 H
Glucose 87
Calcium 8.7
Vital Signs:
Vital Signs
Temp Pulse Resp BP Pulse Ox
97.6 F 72 18 119/56 96
06/22/25 11:24 06/22/25 11:24 06/22/25 11:24 06/22/25 11:24 06/22/25 11:24
I&O
06/21/25 06/22/25 06/23/25
06:59 06:59 06:59
Intake Total 1020 / 1020 300 / 300
Output Total 2220 / 2220 1350 / 1350 570 / 570
Balance -1200 / -1200 -1050 / -1050 -570 / -570
[2025-06-22 15:02] VITALS: BP 116/59
[2025-06-22] MEDS: HEPARIN SC ×2 (15:18→23:11)
[2025-06-22 19:00] VITALS: BP 125/62
[2025-06-22] MEDS: LIPITOR 80 MG PO (21:41)
[2025-06-22] MEDS: ATIVAN 1 MG PO (21:41)
[2025-06-22 23:05] VITALS: BP 114/62
[2025-06-23 03:00] VITALS: BP 127/55
[2025-06-23 06:00] VITALS: BMI 27.7
[2025-06-23 07:00] VITALS: BP 141/74
[2025-06-23] MEDS: HEPARIN SC ×4 (08:00→23:04)
[2025-06-23 08:44] LABS: Hematocrit 36.2 % (39.0-52.0); Hemoglobin 11.5 g/dL (13.0-18.0); Mean Corp Hgb Conc. 31.8 g/dL (33.0-37.0); Mean Corpuscular Volume 96.3 fL (80.0-94.0); Platelet Count 174 10^3/uL (130-400); Red Cell Dist. Width 14.8 % (11.5-14.5)
[2025-06-23] MEDS: PLAVIX 75 MG PO (08:49)
[2025-06-23] MEDS: ASPIR LOW (ENTERIC COATED) 81 MG PO (08:49)
[2025-06-23] MEDS: PROTONIX 40 MG PO (08:49)
[2025-06-23] MEDS: COREG 6.25 MG PO ×2 (08:49→19:37)
[2025-06-23 09:23] LABS: Blood Urea Nitrogen 37 mg/dl (9-20); Calcium 8.6 mg/dl (8.4-10.2); Carbon Dioxide 28 mmol/L (22-30); Chloride 107 mmol/L (98-107); Estimated Creatinine Clearance 36 ml/min; Glucose 94 mg/dl (70-99); Potassium 4.1 mmol/L (3.5-5.1); Sodium 141 mmol/L (135-145); eGFR 55.53
[2025-06-23 11:00] VITALS: BP 131/60
--- NOTE | 2025-06-23 11:56 | W.PN.CARDCBS ---
Addendum entered and electronically signed by Marco Antonio Mccarty MD 06/23/25 18:36:
79-year-old man with acute on chronic HFrEF. Creatinine yogesh with IV diuretics, now improved with creatinine to 1.3 from 1.6.
PMH/PSH: Hypertension, hyperlipidemia, paroxysmal A-fib, right bundle branch block
Current meds: Aspirin 81, atorvastatin 80, carvedilol 6.25 twice daily, Plavix 75 mg a day, lisinopril 20 twice daily on hold, Ativan, pantoprazole 40 mg a day, subcu heparin, furosemide 40 mg orally started today. Was not on a diuretic as an
outpatient.
131/60, pulse 70, weight is 71 kg, essentially unchanged was 78.3 kg on admission, head neck exam unremarkable, lungs are clear, regular rate and rhythm without murmurs or gallops, extremities without much edema
Hemoglobin 11.5, BUN and creatinine 37 and 1.3, potassium 4.1, Baseline potassium is 1.2
Impression:
Acute on chronic HFrEF
CAD status post PCI
Hypertension
Hyperlipidemia
History of PAF on records, not anticoagulated
Hypertension
Hyperlipidemia
Right bundle branch block
JALEN
Other diagnoses, findings, recommendations as below. Reviewed in detail and agree, unless otherwise specified.
Plan:
Overall improved regarding volume status. No overt evidence of heart failure on exam at this time.
Creatinine is improved. Agree with restarting furosemide 40 mg daily by mouth. He had not been on a diuretic at admission.
Will resume lisinopril at 20 mg a day, add low-dose spironolactone
Consider SGLT2 antagonist. Will ask case management to ortega. ($176 for Merline and Cosmo is $110)
Okay to proceed with discharge planning, presuming creatinine is okay tomorrow.
Original Note:
Today's Communication / Plan
-
Restart oral diuretic
Outpatient ischemic evaluation given new LV dysfunction
Impression / Plan
-
PCP:ROSA Jiménez
Primary curber:Raj Rodriguez
Impression:
Acute on chronic heart failure reduced EF
Lower extremity edema
CAD
JALEN, bump in creatinine to 1.6 with diuretics
Hypertension
Hyperlipidemia
Paroxysmal A-fib
right bundle branch block
Cardiovascular testing:
Echo 2020: EF 55%
Echo 06/16/2025: EF 25 to 30%, mildly dilated LV, mild cLVH, biatrial enlargement, moderate AI, mild to moderate MR, mild TR
Plan:
Weight continues to decrease despite diuretics on hold due to worsening renal insufficiency
Weight down 11 pounds since admission
Creatinine has improved to 1.2 06/23/2025, had bumped up to 1.6 with diuretics
Restart Lasix 40 mg p.o. daily
Lisinopril remains on hold. Had been on 20 mg twice daily in outpatient setting, consider restart at lower dose
Consider eventual Entresto and/or Aldactone and Farxiga/Jardiance when renal function has improved
Ejection fraction is newly reduced from records we have, still attempting to get records from outpatient curber and I spoke with their office again this morning.
outpatient ischemic evaluation given new LV dysfunction
Telemetry personally reviewed: Normal sinus rhythm, 5 beat NSVT
K4.1
on DAPT since stenting in 2018
not on OAC with chart history of PAF. No A-fib on telemetry.
He has follow-up cardiology visit in [place] in late June 2025. Perhaps that could be moved up at time of discharge
PREADMIT DATA
79-year-old male with h/o CAD s/p stent x 2 2017, HTN, hyperlipidemia, paroxysmal A-fib, heart failure, GERD, who presents to [facility] ED 06/19/2025 for increased lower extremity edema of several months duration. He was seen at [facility] primary
care in [place] on 06/19/2025 and advised to go to ED. proBNP greater than 27,000, chest x-ray with mild pulmonary edema and bilateral pleural effusions, echo today 05/2024: EF 25 to 30%. He is followed by Dr. Raj Rodriguez at [facility],
but has not been seen in about a year. I have requested records. on Coreg CR 20 mg daily, lisinopril 20 mg twice daily, aspirin, Plavix. He is not on a diuretic in the outpatient setting. Paroxysmal A-fib is listed as a diagnosis but he is not
aware of an arrhythmia history and is not on oral anticoagulation.
Progress Note - Set Making Machine Operator
Subjective
Date of Service: June 23, 2025
Lower extremity edema improving but still with mild lower extremity edema
Weight down 11 pounds since admission
No shortness of breath
Asking when he can be discharged
Objective
Labs:
06/23/25 07:58
06/23/25 07:58
Labs
Hgb 11.5 g/dL (13.0-18.0) L 06/23/25 07:58
Hct 36.2 % (39.0-52.0) L 06/23/25 07:58
Plt Count 174 10^3/uL (130-400) 06/23/25 07:58
Sodium 141 mmol/L (135-145) 06/23/25 07:58
Potassium 4.1 mmol/L (3.5-5.1) 06/23/25 07:58
BUN 37 mg/dl (9-20) H 06/23/25 07:58
Creatinine 1.3 mg/dL (0.7-1.3) 06/23/25 07:58
Glucose 94 mg/dl (70-99) 06/23/25 07:58
Troponins
06/20/25 06/20/25 06/21/25
17:14 22:32 02:56
Troponin I Cancelled 0.122 H* 0.129 H*
06/21/25
11:00
Troponin I 0.077 H*
Vital Signs and I&O:
Vital Signs
Temp Pulse Resp BP Pulse Ox
97.5 F 70 14 131/60 95
06/23/25 11:00 06/23/25 11:00 06/23/25 11:00 06/23/25 11:00 06/23/25 11:00
Vital Signs
Temp Pulse Resp BP Pulse Ox
97.5 F 70 14 131/60 95
06/23/25 11:00 06/23/25 11:00 06/23/25 11:00 06/23/25 11:00 06/23/25 11:00
Intake & Output
06/21/25 06/22/25 06/23/25 06/24/25
06:59 06:59 06:59 06:59
Intake Total 1020 / 1020 300 / 300 480 / 480
Output Total 2220 / 2220 1350 / 1350 570 / 570
Balance -1200 / -1200 -1050 / -1050 -90 / -90
Physical Exam
Physical Exam
GEN: No distress, awake, Ox3
HEENT: supple, anicteric, mmm
LUNGS: CTA, no wheezes/rales
CV: Reg, S1/S2, 1/6 syst LLSB murmur
ABD: soft, BS+, NT/ND
EXT: 1+ left lower extremity edema, trace right lower extremity edema
NEURO: Gross non-focal
SKIN: No rash
--- NOTE | 2025-06-23 12:35 | W.PN.HOSP.TC ---
Addendum entered and electronically signed by Kevin Jiang MD 06/24/25 15:17:
Correction undiagnosed
Acute on chronic systolic congestive heart failure
Original Note:
Today's Communication/Plan
-
Await cardio condition
Follow-up renal function
possible d/c in 24 hrs
Assessment / Plan
Assessment / Plan
1. Acute on chronic diastolic congestive heart failure
proBNP >54231
Chest x-ray with small bilateral pleural effusion, possible atelectasis. Interstitial cardiogenic pulmonary edema.
Patient goes to latex spooler at [facility]
Echo 06/20 with EF 25 to 30%, global hypokinesis. Grade 2 diastolic dysfunction.
Cardiology following
Patient have leg swelling up to mid tibial level on exam today. Renal function has improved. Discussed with cardiology for possible reinitiation of IV versus oral Lasix. Await further recommendation
2. JALEN - Improving
from diuretics use
3. Elevated troponin, likely nonischemic myocardial injury
hx of CAD
s/p stent
- continue aspirin and Plavix
- continue PRN nitro
4. Essential hypertension
- Hold lisinopril secondary to JALEN
5. hyperlipidemia
- continue atorvastatin
6. paroxysmal atrial fibrillation
- continue carvedilol
-Unclear reason why patient not on oral anticoagulant
Code status: full code
DVT Prophylaxis: heparin sq
Anticipated Discharge: Within 24 hours
Subjective/Interval History
-
Date of Service: June 23, 2025
Subjectively feeling better
Denies chest pain/shortness of breath
Not on oxygen
Objective Data
-
Labs:
Laboratory Results
06/23/25
07:58
WBC 5.1
Hgb 11.5 L
Hct 36.2 L
Plt Count 174
Sodium 141
Potassium 4.1
Chloride 107
Carbon Dioxide 28
BUN 37 H
Creatinine 1.3
Glucose 94
Calcium 8.6
Vital Signs:
Vital Signs
Temp Pulse Resp BP Pulse Ox
97.5 F 70 14 131/60 95
06/23/25 11:00 06/23/25 11:00 06/23/25 11:00 06/23/25 11:00 06/23/25 11:00
I&O
06/22/25 06/23/25 06/24/25
06:59 06:59 06:59
Intake Total 300 / 300 480 / 480
Output Total 1350 / 1350 570 / 570
Balance -1050 / -1050 -90 / -90
Review of Systems
-
Respiratory: Reports No Symptoms
Cardiac: Reports No Symptoms
Abdomen/GI: Reports No Symptoms
Physical Exam
-
General: Obese
HEENT: Negative Oxygen
GI: Soft, Nontender and Nondistended
Musculoskeletal: Edema, Right Lower Extrem and Edema, Left Lower Extrem
Neuro: Awake and Alert
[2025-06-23] MEDS: LASIX 40 MG PO (12:42)
[2025-06-23] MEDS: ALDACTONE 12.5 MG PO (14:13)
[2025-06-23] MEDS: ZESTRIL 20 MG PO (14:14)
--- NOTE | 2025-06-23 14:26 | CM ---
manager leadership development reviewed patient's chart and spoke with patient and patient's spouse at bedside. Patient would benefit from PT/OT evaluations. Cost of Farxiga 10mg QD per month is $176.40 and Cost of Jardiance 10mg QD is $110.40 per month. Patient made
aware aware of cost per patient his takes Jardiance per month.
Plan; Home with spouse when stable.
[2025-06-23 15:18] VITALS: BP 133/70
[2025-06-23 19:00] VITALS: BP 142/69
[2025-06-23] MEDS: ATIVAN 1 MG PO (21:36)
[2025-06-23] MEDS: LIPITOR 80 MG PO (21:36)
[2025-06-23 23:17] VITALS: BP 119/61
[2025-06-24 03:10] VITALS: BP 116/49
[2025-06-24 06:00] VITALS: BMI 27.4
[2025-06-24 07:06] VITALS: BP 134/64
[2025-06-24] MEDS: PROTONIX 40 MG PO (08:34)
[2025-06-24] MEDS: ALDACTONE 12.5 MG PO (08:34)
[2025-06-24] MEDS: LASIX 40 MG PO (08:35)
[2025-06-24] MEDS: COREG 6.25 MG PO (08:35)
[2025-06-24] MEDS: ASPIR LOW (ENTERIC COATED) 81 MG PO (08:35)
[2025-06-24] MEDS: ZESTRIL 20 MG PO (08:35)
[2025-06-24 08:36] LABS: Blood Urea Nitrogen 34 mg/dl (9-20); Calcium 8.7 mg/dl (8.4-10.2); Carbon Dioxide 28 mmol/L (22-30); Chloride 107 mmol/L (98-107); Estimated Creatinine Clearance 40 ml/min; Glucose 89 mg/dl (70-99); Potassium 4.0 mmol/L (3.5-5.1); Sodium 138 mmol/L (135-145); eGFR > 60.00
[2025-06-24] MEDS: PLAVIX 75 MG PO (08:36)
[2025-06-24] MEDS: HEPARIN SC (08:38)
[2025-06-24 10:49] VITALS: BP 125/59; PULSE 74; O2SAT 97
--- NOTE | 2025-06-24 11:05 | PTOTSP ---
Pt presents to OT with grossly intact cognition and good UB ROM and strength. Currently at mod I/I level with basic self care, transfers and functional mobility in room and x household distances without AD. Provided education in energy conservation
and work simplification strategies to maximize occupational performance. Pt receptive to all education provided. No further skilled OT indicated at this time.
[2025-06-24 12:10] VITALS: BP 127/64; PULSE 68
--- NOTE | 2025-06-24 13:07 | PN.CDI ---
CDI
- -
CDI:
Physician Documentation Request
Admit Date: 06/19/25 18:50
Dear Doctor,
Patient admitted for heart failure.
06/23 Cardiology PN: 'Acute on chronic HFrEF...Echo 06/16/2025: EF 25 to 30%'
06/23 Hospitalist PN: 'Acute on chronic diastolic congestive heart failure'
Please provide further specificity regarding the most likely type of CHF you are evaluating, treating or monitoring.
Systolic
Diastolic
Other
Use of terms such as suspected, likely, concern for, or probable (associated with a specific diagnosis that is being evaluated, monitored, or treated as if it exists) are acceptable and can be coded in the inpatient setting, when documented at the
time of discharge.
Thank you,
Nurys Delarosa RN, BSN
CDI Specialist
Available via [place] text
Please use your independent medical judgment in providing your response.
--- NOTE | 2025-06-24 13:12 | CM ---
Patient is for discharge to home today, coupon for Merline provided to patient if patient prescribed medication in the future. Patient is aware of copay for medication $110.40. Offered visiting nurses for patient and patient has declined visiting
nurses at discharge.
Plan; Home today with spouse.
--- NOTE | 2025-06-24 13:22 | PTCARENOTE ---
Discharge packet and heart failure education reviewed with patient and spouse, by this RN--verbal and teach back method performed for education. All medications reviewed, including new medications that include Lasix, spironolactone, and carvedilol.
This RN did review brand and generic drug names, class of drugs, mech of action and potential side effects. All questions and/or concerns addressed prior to discharge. IV removed. Tele removed. All belongings accounted for. Transport called to wheel
patient down to main lobby, for discharge to home with spouse.
[2025-06-24 13:32] VITALS: BP 147/75
--- NOTE | 2025-06-24 15:11 | W.DCSUMMARY ---
Discharge Summary
Discharge Data
Date of Admission: 06/19/25
Date of Discharge: 06/24/25
-
Pending Results: No
Hospital Course
Discharging Physician : Dr Kevin Jiang
Disposition : To home
Primary care physician : Dr Bertrand Mathews
Principal Discharge diagnosis :
Acute on chronic systolic congestive heart failure
Acute kidney injury
Chronic Discharge diagnosis :
Coronary disease with history of coronary intervention
Essential hypertension
Hyperlipidemia
History of paroxysmal atrial fibrillation not on anticoagulation
Hyperlipidemia
Physical examination:
HEENT: moist mucus membrane
Chest: Clear to auscultation
Heart: N s1/s2, RRR, no murmur
Abd: N BS, soft, nontender, nondistended, no organomegaly
Neuro: No motor or sensory deficits
Ext: No cyanosis, Clubbing, edema
Hospital Course :
Patient is a 79-year-old male with worsening past medical history came to ER with progressive lower extremity swelling. Patient was seen by outpatient physicians and was advised to come to the ER. Patient was not voicing any major complaint of
shortness of breath/orthopnea at admission. Chest x-ray in the ER showing small bilateral effusion and signs of interstitial cardiogenic pulmonary edema. Patient was started on IV diuretic therapy and cardiology was involved in care. Patient had
a follow-up echocardiogram which showed ejection fraction of 25 to 30% with grade 2 diastolic dysfunction. Patient improvement in signs of leg swelling/volume overload. Patient had some associated renal dysfunction which improved as well with
diuresis. Cardiology cleared for patient to be discharged home and home medication regimen adjusted with patient added on small dose of Aldactone. Patient was also provided prescription for oral Lasix.
Important imaging findings :
None
Procedure findings :
None
Discharge Plan
-
Patient Disposition: Home (Routine Discharge)
Discharge Diagnosis/Procedures: HF exacerbation
Condition: Fair
Diet: Low Sodium and Restrict fluids to 48 oz
Activity: As tolerated
Driving Restrictions: As prior to admission
Bathing Restrictions: OK to Shower
Specialty Instructions: Weigh Daily- Call MD for wt gain/loss 3 lbs overnight/5 lbs in 1 week
Instructions: *PCP/Other Clinical Recruiter Heart Failure Instructions
Referrals:
Rja Conklin MD [Non-Admitting Privileges, Internal Medicine] - in one to two weeks
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 Please call with questions.
Bertrand Mathews CRNP [Family Provider, General]
Prescriptions:
New
carvedilol 6.25 mg Tablet
6.25 mg PO BID Qty: 60 0RF
furosemide 40 mg Tablet
40 mg PO DAILY Qty: 30 2RF
spironolactone 25 mg Tablet
12.5 mg PO DAILY Qty: 30 1RF
Continued
atorvastatin 80 mg tablet
80 mg PO HS
clopidogrel 75 mg tablet
75 mg PO DAILY
nitroglycerin 0.4 mg tablet, sublingual
0.4 mg sublingual [id number] PRN (Reason: chest pain)
lorazepam 1 mg tablet
1 mg PO HS
therapeutic multivitamin Tablet
1 tab PO DAILY
aspirin 81 mg Tablet,Delayed Release (Dr/Ec)
81 mg PO DAILY
ascorbic acid (vitamin C) [Vitamin C] 500 mg Tablet
500 mg PO DAILY
coenzyme Q10 [Co Q-10] 100 mg Capsule
100 mg PO DAILY
cholecalciferol (vitamin D3) 25 mcg (1,000 unit) Tablet
25 mcg PO DAILY
Visbiome 112.5 billion cell Capsule
1 cap PO DAILY
omeprazole 20 mg Tablet,Delayed Release (Dr/Ec)
20 mg PO DAILY
garlic 200 mg Tablet
200 mg PO DAILY
Glucosamine Chondroitin 550-30-1 mg Capsule
1 cap PO DAILY
Changed
lisinopril 20 mg tablet
20 mg PO DAILY Qty: 0 0RF
Discontinued
carvedilol phosphate 20 mg capsule, ER multiphase 24 hr
20 mg PO DAILY
Discharge Orders:
Discharge Patient (As Directed); Ordered 06/24/25
Ordered By: Kevin Jiang
Discharge Date and Time
Discharge Date/Time: 06/24/25 13:38
Print Language: DIVEHI
--- NOTE | 2025-06-24 17:26 | W.PN.CARDCBS ---
Today's Communication / Plan
-
Okay for discharge
Impression / Plan
-
PCP:ROSA Jiménez
Primary tub chucker:Raj Rodriguez
Impression:
Acute on chronic heart failure reduced EF
Lower extremity edema
CAD
JALEN, bump in creatinine to 1.6 with diuretics
Hypertension
Hyperlipidemia
Paroxysmal A-fib
right bundle branch block
Cardiovascular testing:
Echo 2020: EF 55%
Echo 06/16/2025: EF 25 to 30%, mildly dilated LV, mild cLVH, biatrial enlargement, moderate AI, mild to moderate MR, mild TR
Plan:
Overall he looks well, and is stable for discharge.
Renal function has improved, spironolactone was initiated yesterday and creatinine continues to return to baseline.
Now on oral furosemide, had not been on a diuretic prior to admission.
Recommended cardiac medications at discharge:
Carvedilol 6.25 mg twice daily
Furosemide 40 mg daily
Spironolactone 12.5 mg daily
Aspirin 81 mg daily
Atorvastatin 80 mg daily
Clopidogrel 75 mg daily
Lisinopril 20 mg once daily (reduced dose)
Patient will require follow-up labs, possibly ischemic evaluation, he has follow-up planned with Dr. Rodriguez
Given multiple medication changes, will not add SGLT2 antagonist at present, this can be considered by his primary tub chucker as an outpatient.
PREADMIT DATA
79-year-old male with h/o CAD s/p stent x 2 2017, HTN, hyperlipidemia, paroxysmal A-fib, heart failure, GERD, who presents to [facility] ED 06/19/2025 for increased lower extremity edema of several months duration. He was seen at [facility] primary
care in [place] on 06/19/2025 and advised to go to ED. proBNP greater than 27,000, chest x-ray with mild pulmonary edema and bilateral pleural effusions, echo today 05/2024: EF 25 to 30%. He is followed by Dr. Raj Rodriguez at [facility],
but has not been seen in about a year. I have requested records. on Coreg CR 20 mg daily, lisinopril 20 mg twice daily, aspirin, Plavix. He is not on a diuretic in the outpatient setting. Paroxysmal A-fib is listed as a diagnosis but he is not
aware of an arrhythmia history and is not on oral anticoagulation.
Progress Note - Sod Cutter
Subjective
Date of Service: June 24, 2025:
79-year-old man with acute on chronic HFrEF. Creatinine yogesh with IV diuretics, now improved with creatinine to 1.3 from 1.6.
PMH/PSH: Hypertension, hyperlipidemia, paroxysmal A-fib, right bundle branch block
147/75, pulse 3, respiratory rate 16, head neck exam unremarkable, kyphoscoliosis, lungs clear, Soft systolic murmur at apex, mild tricuspid regurgitation, JVD okay, 1+ edema
BUN and creatinine are 34 and 1.2, potassium is 4,
Objective
Labs:
06/23/25 07:58
06/24/25 06:48
Labs
Hgb 11.5 g/dL (13.0-18.0) L 06/23/25 07:58
Hct 36.2 % (39.0-52.0) L 06/23/25 07:58
Plt Count 174 10^3/uL (130-400) 06/23/25 07:58
Sodium 138 mmol/L (135-145) 06/24/25 06:48
Potassium 4.0 mmol/L (3.5-5.1) 06/24/25 06:48
BUN 34 mg/dl (9-20) H 06/24/25 06:48
Creatinine 1.2 mg/dL (0.7-1.3) 06/24/25 06:48
Glucose 89 mg/dl (70-99) 06/24/25 06:48
Vital Signs and I&O:
Vital Signs
Temp Pulse Resp BP Pulse Ox
37.1 C 73 16 147/75 97
06/24/25 13:32 06/24/25 13:32 06/24/25 13:32 06/24/25 13:32 06/24/25 13:32
Vital Signs
Temp Pulse Resp BP Pulse Ox
37.1 C 73 16 147/75 97
06/24/25 13:32 06/24/25 13:32 06/24/25 13:32 06/24/25 13:32 06/24/25 13:32
Intake & Output
06/22/25 06/23/25 06/24/25 06/25/25
07:59 07:59 07:59 07:59
Intake Total 300 / 300 480 / 480 960 / 960
Output Total 1350 / 1350 570 / 570 620 / 620
Balance -1050 / -1050 -90 / -90 340 / 340
Physical Exam
Physical Exam
See above
--- NOTE | 2025-06-25 09:49 | W.HF.CON ---
Heart Failure
- LV Function
Left ventricular function study result: LV Ejection fraction </= 35%
Ejection Fraction Percentage: 25-30
- ARNI
Patient already on ARNI: No
Heart Failure ARNI Contraindication: Worsening Renal Function
- ACEI/ARB
Patient already on ACEI/ARB: Yes
- Beta Ino
Patient already on Evidence Based Beta Ino: Yes
- Mineralocorticord Receptor Antagonist
Patient already on MRA: Yes
- SGLT-2 Inhibitor
Patient already on SGLT-2 Inhibitor: No
Heart Failure SGLT-2 Inhibitor Contraindication: Patient Refusal
- NYHA CHF Classification
NYHA CHF Classification Level: Class III - Symptoms w/ min exertion, interferes w/ nml daily activity
- ACC/AHA Stage
ACC/AHA Stage: Stage C: Symptomatic Heart Failure
== END 2025-06-24 13:38 | disposition home or self-care (01) | DRG 291 ==
LOC: 4 WEST ACU 18:50
PROVIDERS: Internal Medicine; Nurse Practitioner Family; Physician Assistant; ADMITTING PHYSICIAN General Practice; ATTENDING PHYSICIAN Hospitalist; EMERGENCY PHYSICIAN Emergency Medicine; FAMILY PHYSICIAN Nurse Practitioner Gerontology; OTHER PHYSICIAN Internal Medicine Cardiovascular Disease
DX: I11.0 Hypertensive heart disease with heart failure (principal); I50.23 Acute on chronic systolic (congestive) heart failure; N17.9 Acute kidney failure, unspecified; I48.0 Paroxysmal atrial fibrillation; E78.00 Pure hypercholesterolemia, unspecified; K21.9 Gastro-esophageal reflux disease without esophagitis; F41.9 Anxiety disorder, unspecified; I25.10 Atherosclerotic heart disease of native coronary artery without angina pectoris; Z95.5 Presence of coronary angioplasty implant and graft; Z79.02 Long term (current) use of antithrombotics/antiplatelets; Z79.82 Long term (current) use of aspirin; I45.10 Unspecified right bundle-branch block; Z88.0 Allergy status to penicillin; Z79.899 Other long term (current) drug therapy; I42.9 Cardiomyopathy, unspecified
CPT/HCPCS: 71046; 80048; 80053; 80061; 81003; 83880; 84484; 85025; 85027; 93005; 93306; 93970; 96374; 97110; 97116; 97162; 97166; 97535; 99285